=== PATIENT | male | born 1950 | race Two or more races ===

== ENCOUNTER 2023-07-14 07:26 | Day surgery (SDC) | payer BC, MEDICARE, OTHER ==
[~2023-07-14] VITALS: Ht 175.3 cm; Wt 104.5 kg
[~2023-07-14 07:26] MED LIST: ACYCLOVIR800 MG PO; PREDNISONE20 MG PO
[2023-07-14 07:47] VITALS: BP 149/89
--- NOTE | 2023-07-14 08:38 | NUR ---
07/14/23 0838 Ashleigh Linares 0827-PT TO PACU IN LL POSITION. EYES CLOSED. PT RESPONDS TO VERBAL AND TACTILE STIMULI. PT DENIES PAIN BUT REPORTS NAUSEA. BREATHING EASY AND UNLABORED. SPO2 >90% ON 2L O2 VIA NC. MD NOTIFIED OF NAUSEA AND NEW ORDERS RECIEVED. PT EDUCATED ABOUT PASSING GAS AND POC FOR PACU. 0835-PT RESTING COMFORTABLY, EYES CLOSED. BREATHING EASY AND UNLABORED.SPO2 >90% ON 2 L O2 VIA NC.
[2023-07-14 09:25] VITALS: BP 135/84
--- NOTE | 2023-07-14 09:53 | NUR ---
0925: PT RETURNS TO UNIT FROM PACU FOR EXTENDED RECOVERY. OXYGEN SATS UNSTABLE WITHOUT OXYGEN DURING DROWSY PERIODS. VSS AT THIS TIME. AWAKE AND HOLDING APPROPRIATE CONVERSATION. DISCUSSED POC WITH PT AND PT AGREEABLE. TO THE BEDSIDE. ICE WATER PROVIDED. NO NEEDS, CALL LIGHT WITHIN REACH. REMAINS ON 2L VIA NC AND PULSE OXIMETER IN PLACE
[2023-07-14 09:55] VITALS: BP 148/85
--- NOTE | 2023-07-14 10:34 | OR ---
[facility] [address], [place] [address] Signed DATE OF OPERATION: 07/14/2023 SURGEON: Daina Simmons MD PREOPERATIVE DIAGNOSES: 1. Change in bowel habits with constipation over the last couple of years. 2. Intermittent rectal bleeding. 3. Hemorrhoids. POSTOPERATIVE DIAGNOSES: 1. Minimal sigmoid diverticulosis. 2. Minimal to moderate internal hemorrhoids. 3. Palpable nodule outside the rectum at about 4 cm. 4. Indurated and enlarged prostate gland. PROCEDURE: Colonoscopy without biopsy. ESTIMATED BLOOD LOSS: None. INDICATIONS: Elmer is a 72-year-old gentleman, asked to see me for a colonoscopy. He describes a colonoscopy with Dr. Jansen in the [facility] around 1990. He believes he was in his late 50s but that would actually place him around age 40. He was told he had some hemorrhoids. He has also helped his with the colonoscopy. Consequently, they are familiar with this process. He said over the last couple of years, he has had some constipation. He has never filled the prescription for the polyethylene glycol. He said he still has a little bleeding once in a while from his anus. 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 He came by himself to the office. He gives no family history of colon cancer or polyps. In the office, I gave Elmer a pamphlet on colonoscopy. He understands the nature of the test. There is risk including, but not limited to gas bloating, crampy abdominal pain, bleeding, perforation requiring surgery, and missed diagnosis. He also understands the need for IV conscious sedation. He had expressed understanding and wished to proceed. PROCEDURE NOTE: Elmer was taken into our endoscopy suite and placed in the left lateral decubitus position. He was given 5 mg of Versed and 100 mcg of fentanyl to cover the case. A digital rectal exam was performed. He has good sphincter tone. No external Electronically Signed By: DAINA SIMMONS MD 07/14/23 1034 PATIENT NAME: ELMER RANKIN OPERATIVE REPORT DATE OF : 52 REPORT #: [id number] PHYSICIAN: DAINA SIMMONS MD PCP: RANDELL FERNANDEZ MD REPORT IS CONFIDENTIAL AND NOT TO BE RELEASED WITHOUT AUTHORIZATION [facility] [address], [place] [address] Signed hemorrhoids. The prostate is moderately enlarged and indurated. Just below the prostate, I could feel a firm nodule through the rectal wall. It is not attached to the prostate gland. It is mobile. It is probably 5 or 7 mm in diameter. After this, the adult colonoscope was introduced and advanced under direct visualization of the camera without difficulty. His prep was quite excellent after his double bowel prep. We could easily see the appendiceal orifice and the ileocecal valve. The scope was then slowly withdrawn. We took pictures throughout for photodocumentation. He does have some diverticula in the sigmoid colon. They are minimal to moderate in size, few in number and scattered about. The rectum was unremarkable. Upon retroflexion of the scope, we very carefully examined the area in the lower half of his rectum and around the anus. He does have minimal to moderate internal hemorrhoid columns. There were no internal anal skin tags. We did not see any obvious nodule to correspond to the palpable lesion. The lesion feels to be on the outside wall of the rectum. After this, the gas was suctioned out and the colonoscope removed. Elmer tolerated the procedure quite well. RECOMMENDATIONS: Elmer will follow up in my office in 10 years for repeat screening colonoscopy. He might consider seeing our colorectal surgeon at our [facility] for repeat digital rectal exam and transrectal ultrasound to better identify that nodule. Daina Simmons MD ALB/MODL /[id number] cc: MD Daina Nicolas MD Copies: RANDELL FERNANDEZ MD, ANDREW L MD ~ Electronically Signed By: DAINA SIMMONS MD 07/14/23 1034 PATIENT NAME: ELMER RANKIN OPERATIVE REPORT DATE OF : 52 REPORT #: [id number] PHYSICIAN: DAINA SIMMONS MD PCP: RANDELL FERNANDEZ MD REPORT IS CONFIDENTIAL AND NOT TO BE RELEASED WITHOUT AUTHORIZATION
== END 2023-07-14 10:00 | disposition home or self-care (01) ==
LOC: DS 07:26 → OPS 07:26 → DS 08:15 → OPS 10:00
PROVIDERS: ATTEND Colon & Rectal Surgery
PROC: 0DJD8ZZ Inspection of Lower Intestinal Tract, Via Natural or Artificial Opening Endoscopic (ICD-10-PCS; principal; 2023-07-14 08:15)
DX: K57.31 Diverticulosis of large intestine without perforation or abscess with bleeding (principal); K64.8 Other hemorrhoids; N40.0 Benign prostatic hyperplasia without lower urinary tract symptoms; E78.5 Hyperlipidemia, unspecified; K59.00 Constipation, unspecified; Z91.09 Other allergy status, other than to drugs and biological substances
CPT/HCPCS: 99153; G0500; J2250; J2405; J3010; J7121